=== PATIENT | male | born 1965 | race Caucasian/White ===

== ENCOUNTER → 2016-12-31 | Outpatient (CLI) | payer BC | END | disposition home or self-care (01) | LOC: LAB.O 12:41 | PROVIDERS: ATTEND Nurse Practitioner Family | DX: I10 Essential (primary) hypertension (principal) ==

== ENCOUNTER → 2017-03-11 | Outpatient (CLI) | payer BC ==
--- NOTE | 2017-03-12 11:56 | CT ---
EXAM DESCRIPTION: Abdomen/Pelvis w/Contrast CLINICAL HISTORY: MALIGNANT NEOPLASM OF ABDOMEN COMPARISON: None TECHNIQUE: Postcontrast multidetector CT imaging of the abdomen and pelvis was performed. Multiplanar reconstructions were generated. This exam was performed according to our departmental dose-optimization program, which includes automated exposure control, adjustment of the mA and/or kV according to patient size and/or use of iterative reconstruction technique. FINDINGS: Lung bases: No acute disease process in the lung bases. Liver: Liver is enlarged. Liver is heterogeneous and decreased attenuation compared to the spleen without focal hepatic mass. Gallbladder and biliary system: Gallbladder is contracted. Pancreas: Unremarkable. Spleen: Unremarkable. Adrenal glands: Normal. Kidneys: Unremarkable. Abdominal vasculature: Mild atherosclerotic disease. Bladder: No abnormal bladder mucosal enhancement. Gastrointestinal: No gastrointestinal obstruction or inflammation is present. Appendix is not visualized. There is a 2.6 cm diverticulum of the third portion of the duodenum identified. Pelvic organs: Moderate central prostate calcifications are seen. Other: No free fluid, free intraperitoneal gas or lymphadenopathy. No aggressive lytic or blastic osseous lesions are present. Moderate fat-containing umbilical hernia is seen. Small bilateral fat-containing inguinal hernias. IMPRESSION: No acute findings on postcontrast CT of the abdomen and pelvis. Hepatomegaly with diffuse fatty infiltration of the liver is seen. Moderate fat-containing umbilical hernia. No abdominal malignancy is appreciated. If any further history or prior examinations are available I would be glad to review the study again. Electronically signed by: Elder Randle MD 03/12/2017 11:55 AM CDT
== END | disposition home or self-care (01) ==
LOC: CT 08:10
PROVIDERS: ATTEND Nurse Practitioner Family
DX: R60.0 Localized edema (principal); C76.2 Malignant neoplasm of abdomen

== ENCOUNTER → 2017-03-24 | Outpatient (CLI) | payer BC | LOC: LAB.O 10:38 | PROVIDERS: ATTEND Nurse Practitioner Family | DX: E87.6 Hypokalemia (principal) ==

== ENCOUNTER → 2017-06-08 | Outpatient (CLI) | payer BC ==
--- NOTE | 2017-06-09 10:39 | RAD ---
EXAM DESCRIPTION: Forearm,Right CLINICAL HISTORY: 52 years Male, ARM PAIN COMPARISON: None. FINDINGS: 2 views of the right forearm show no acute fracture or malalignment. There is mild soft tissue swelling posteriorly without radiopaque foreign body or soft tissue gas. IMPRESSION: Posterior soft tissue swelling, otherwise unremarkable exam. Electronically signed by: Johnny Rico MD 06/09/2017 10:37 AM CDT Workstation: [email or web address]
--- NOTE | 2017-06-09 10:39 | RAD ---
EXAM DESCRIPTION: Chest,2 Views CLINICAL HISTORY: COPD COMPARISON: October 26, 2016 FINDINGS: The heart is at the upper limits of normal size, stable. Mediastinal contours are otherwise unremarkable. Subsegmental atelectasis or scarring in both lung bases, stable. No new airspace consolidation or pleural effusion. The lung volumes are at the upper limits of normal range. There is no pneumothorax or acute fracture. IMPRESSION: Stable borderline heart size and subsegmental atelectasis or scarring in both lung bases, but no acute intrathoracic abnormality. Borderline pulmonary hyperinflation consistent with provided history of COPD. Electronically signed by: Johnny Rico MD 06/09/2017 10:36 AM CDT [facility]: [facility]
== END ==
LOC: LAB.O 15:10
PROVIDERS: ATTEND Nurse Practitioner Family
DX: J44.9 Chronic obstructive pulmonary disease, unspecified (principal); M79.89 Other specified soft tissue disorders; M79.601 Pain in right arm

== ENCOUNTER → 2017-06-15 | Outpatient (CLI) | payer BC ==
--- NOTE | 2017-06-19 14:49 | MRI ---
EXAM DESCRIPTION: Upper Extremity,Right w/oCont CLINICAL HISTORY: 52 years, Male, PAIN IN RIGHT ARM COMPARISON: None TECHNIQUE: MRI of the elbow was performed with multiplanar multi sequence imaging according to our usual protocol. FINDINGS: Inflammatory fluid collection in the olecranon bursa is thick-walled with heterogeneous signal on T2 imaging. The fluid collection measures about 3.6 cm x 0.9 cm x 3 cm in size and is consistent with olecranon bursitis. Surrounding edema is present. There is no bone or joint involvement. Biceps, triceps, brachialis intact and unremarkable. IMPRESSION: Inflammatory versus infectious olecranon bursitis Electronically signed by: Carter Early MD 06/19/2017 2:47 PM CDT
== END ==
LOC: LAB.O 10:58
PROVIDERS: ATTEND Nurse Practitioner Family
DX: M79.601 Pain in right arm (principal); R60.0 Localized edema

== ENCOUNTER → 2017-07-19 | Outpatient (CLI) | payer BC | LOC: SL 07-05 13:42 | PROVIDERS: ATTEND Nurse Practitioner Family | DX: G47.33 Obstructive sleep apnea (adult) (pediatric) (principal); I27.9 Pulmonary heart disease, unspecified; I10 Essential (primary) hypertension; G47.10 Hypersomnia, unspecified; R06.83 Snoring ==